=== PATIENT | male | born 1985 | race Caucasian/White ===

== ENCOUNTER 2018-11-07 12:34 | Emergency (ER) | payer MEDICAID ==
[2018-11-07 13:13] VITALS: BP 126/71
--- NOTE | 2018-11-07 13:40 | CR ---
[id number] RAD/RAD Fingers Right Exam: RAD Fingers Right Indication:FALL WHILE SKATEBOARDING Comparison: No prior imaging for comparison. Discussion: Acute transversely orientated fracture at the base of the 2nd digit proximal phalanx. No displacement or separation at the fracture site. No evidence of intra-articular extension. No other fractures identified. Impression: Acute nondisplaced fracture at the base of the 2nd digit proximal phalanx. Erwin Garland MD 11/07/18 [id number] Thank you for allowing us to participate in the care of your patient.
--- NOTE | 2018-11-07 13:40 | CR ---
[id number] RAD/RAD Shoulder Left 2V Min Exam: RAD Shoulder Left 2V Min Indication:FALL WHILE SKATEBOARDING Comparison: No prior imaging for comparison. Discussion: No significant osseous or soft tissue abnormality. Impression: Negative examination of the shoulder. Erwin Garland MD 11/07/18 [id number] Thank you for allowing us to participate in the care of your patient.
--- NOTE | 2018-11-07 13:51 | EDM.PDOC ---
ED HPI GENERAL MEDICAL PROBLEM - General Chief Complaint: Upper Extremity Injury/Pain Stated Complaint: LT SHOULDER PAIN/RT FINGER Time Seen by Provider: 11/07/18 12:35 Source of Information: Reports: Patient History Limitations: Reports: No Limitations - History of Present Illness INITIAL COMMENTS - FREE TEXT/NARRATIVE: Pt. presents to ER with complaints of L shoulder pain and R index finger pain. He presents to ER on a skateboard. He states that he injured himself while skateboarding 2 weeks ago and is concerned his shoulder is dislocated. He states that his shoulder is still hurting from the injury. Denies any acute injury. Denies striking his head. No neck pain. No numbness/tingling in extremities. No chest pain or shortness of breath. He does not have a PCP. He is requesting expeditious treatment in the ER this afternoon. Onset: Today Onset Date: 11/07/18 Location: Reports: Upper Extremity, Left, Upper Extremity, Right Left Shoulder Pain Score (Numeric/FACES): 4 - Related Data Allergies Allergy/AdvReac Type Severity Reaction Status Date / Time No Known Allergies Allergy Verified 12/06/15 10:49 Home Meds: Home Meds . [No Known Home Meds] 12/06/15 [History] Past Medical History - Past Health History Medical/Surgical History: Denies Medical/Surgical History Review of Systems - Review of Systems Review Of Systems: See Below Constitutional: Reports: No Symptoms Eyes: Reports: No Symptoms Ears: Reports: No Symptoms Nose: Reports: No Symptoms Mouth/Throat: Reports: No Symptoms Respiratory: Reports: No Symptoms Cardiovascular: Reports: No Symptoms GI/Abdominal: Reports: No Symptoms Genitourinary: Reports: No Symptoms Musculoskeletal: Reports: Other (base of R index finger and pain with movement of L shoulder. ) Skin: Reports: No Symptoms Neurological: Reports: No Symptoms Psychiatric: Reports: No Symptoms ED EXAM, GENERAL - Physical Exam Exam: See Below Exam Limited By: No Limitations General Appearance: Alert, WD/WN, No Apparent Distress Head: Atraumatic, Normocephalic Neck: Normal Inspection, Supple, Non-Tender, Full Range of Motion Respiratory/Chest: No Respiratory Distress, Lungs Clear, Normal Breath Sounds, No Accessory Muscle Use, Chest Non-Tender Cardiovascular: Normal Peripheral Pulses, Regular Rate, Rhythm, No Edema, No Gallop, No JVD, No Murmur, No Rub ED TRAUMA EXTREMITY PROCEDURES - Splinting Right 2nd Digit Splint Site: R index finger Pre-Procedure NV Status: Normal Post-Procedure NV Status: Normal Splint Material: Aluminum-Foam Splint Design: Other (baseball splint) Applied & Form Fitted By: Provider Provider Post-Splint Application NV Check: NV Status Normal, Good Position Complications: No Course - Vital Signs Last Recorded V/S: Last Vital Signs Temp 36.6 C 11/07/18 12:35 Pulse 108 H 11/07/18 12:35 Resp 20 11/07/18 12:35 BP 126/71 11/07/18 12:35 Pulse Ox 97 11/07/18 12:35 - Radiology Interpretation Free Text/Narrative:: Fracture noted to the base of the 2nd digit R hand. No acute bony injury to the shoulder. Departure - Departure Time of Disposition: 13:30 Disposition: Home, Self-Care 01 Clinical Impression: Fx phalanges, hand-closed - Discharge Information Instructions: Finger Fracture, Adult, [id number] Referrals: PCP,None [Primary Care Provider] - Forms: ED Department Discharge Additional Instructions: Splint for 4 weeks at least. You will need to establish care in a clinic and have the fracture monitored. If you still have pain in your shoulder, you may need an MRI. There was no obvious bony injury or dislocation. Ibuprofen 600mg every 6 hours as needed for pain. - Assessment/Plan Plan: Splint for 4 weeks at least. You will need to establish care in a clinic and have the fracture monitored. If you still have pain in your shoulder, you may need an MRI. There was no obvious bony injury or dislocation. Ibuprofen 600mg every 6 hours as needed for pain.
== END 2018-11-07 13:14 | disposition home or self-care (01) ==
LOC: VM.ED 12:34
DX: S62.610A Displaced fracture of proximal phalanx of right index finger, initial encounter for closed fracture (principal); M25.512 Pain in left shoulder; X58.XXXA Exposure to other specified factors, initial encounter; Y93.51 Activity, roller skating (inline) and skateboarding
CPT/HCPCS: 73030-LT; 73140-F6; 99283-25